=== PATIENT | female | born 1980 | race African-American/Black ===

== ENCOUNTER 2022-01-18 03:12 | Emergency (ER) | payer SELFPAY ==
[~2022-01-18] VITALS: Ht 177.8 cm; Wt 68.0 kg
[2022-01-18] MEDS ORDERED: NITROGLYCERIN 0.4MG TABLET SL SL PRN (03:45)
[2022-01-18] MEDS ORDERED: ASPIRIN 81MG TABLET PO ONE (03:45)
[2022-01-18 04:23] LABS: BASOPHILS % 1.3 % (0.0-2.0); EOSINOPHILS % 2.1 % (0.0-5.0); HEMATOCRIT. 35.9 % (36.0-48.0); HEMOGLOBIN. 11.9 g/dL (12.0-16.0); LYMPHOCYTES % 28.9 % (20.0-50.0); MEAN CORPUSCULAR HEMOGLOBIN 29.9 pg (28.0-32.0); MEAN PLATELET VOLUME 8.8 fl (7.4-10.4); MONOCYTES % 9.4 % (2.0-8.0); NEUTROPHILS % 58.3 % (40.0-76.0); PLATELET 247 x1000/uL (130-400); RED BLOOD CELL COUNT 3.99 mill/uL (4.2-5.4); RED CELL DISTRIBUTION WIDTH 20.7 % (11.6-14.6)
[2022-01-18 04:28] LABS: CHLORIDE 101 mEq/L (98-107)
[2022-01-18] MEDS ORDERED: MAGNESIUM/ALUMINUM HYDROXIDE/SIMETHICONE 30ML UDC PO STA (05:35)
[2022-01-18] MEDS ORDERED: VISCOUS LIDOCAINE 2% 15 ML UDC PO STA (05:35)
[2022-01-18] MEDS ORDERED: FAMOTIDINE 20MG TABLET PO ONE (05:45)
[2022-01-18] MEDS ORDERED: FAMO-135 MT (07:17)
[2022-01-18] MEDS ORDERED: MAG-55 MT (07:17)
[2022-01-18 07:43] VITALS: BP 141/95
== END 2022-01-18 08:10 | disposition home or self-care (01) ==
LOC: ER 03:20
DX: R07.89 Other chest pain (principal); R06.02 Shortness of breath; K21.9 Gastro-esophageal reflux disease without esophagitis; D64.9 Anemia, unspecified; J45.909 Unspecified asthma, uncomplicated; I50.9 Heart failure, unspecified; F17.290 Nicotine dependence, other tobacco product, uncomplicated
CPT/HCPCS: 36415; 71045; 80053; 83880; 84484; 85025; 93005; 99285; Z7610